=== PATIENT | female | born 1980 | race Caucasian/White ===

== ENCOUNTER 2021-03-22 14:03 | Observation (INO) | payer BC, SELFPAY ==
[2021-03-22] VITALS (18 sets, daily range): BP systolic 95–133; BP diastolic 48–85; PULSE 58–106; RESP 16–18; TEMP 36.4–43; O2SAT 94–100; BMI 33.2; BMI 34.5
--- NOTE | 2021-03-22 14:13 | US_ITS ---
FINAL REPORT CLINICAL HISTORY: Severe RLQ pain, r/o ovarian torsion FINDINGS: PELVIC ULTRASOUND Transvaginal sonographic images were obtained. The uterus is enlarged at 10.8 cm. The endometrial stripe is normal at 1.3 cm. The right ovary measures 4 x 1.8 x 2.5 cm. There is a tubular fluid-filled structure adjacent to the right ovary concerning for possible hydrosalpinx. The left ovary measures 4 x 2 x 2.5 cm and appears normal. There is no free fluid. IMPRESSION: 1. Enlarged uterus. 2. Possible right hydrosalpinx. Reviewed, Interpreted and Dictated by Gagandeep Arguelles MD Transcribed by Adelina Alarcon Authenticated by Gagandeep Arguelles MD on 03/22/2021 03:16:36 PM [facility]
--- NOTE | 2021-03-22 14:15 | CT_ITS ---
PROCEDURE INFORMATION: Exam: CT Abdomen And Pelvis With Contrast Exam date and time: 03/22/2021 2:15 PM Age: 41 years old Clinical indication: Abdominal pain; Localized; Right lower quadrant (rlq); Additional info: Rlq abd pain, assess for appendicitis TECHNIQUE: Imaging protocol: Computed tomography of the abdomen and pelvis with contrast. Radiation optimization: All CT scans at this facility use at least one of these dose optimization techniques: automated exposure control; mA and/or kV adjustment per patient size (includes targeted exams where dose is matched to clinical indication); or iterative reconstruction. Contrast material: ISOVUE; Contrast volume: 75 ml; Contrast route: IV; COMPARISON: US TRANSVAGINAL 03/22/2021 2:37 PM FINDINGS: Lungs: No acute findings in the visualized lower lungs. No consolidation. Liver: The liver is normal. Gallbladder and bile ducts: The gallbladder is unremarkable. No calcified stones or biliary dilatation. Pancreas: The pancreas is normal. Spleen: The spleen is normal. Tiny accessory splenule at the lateral tip of spleen series 5, image 25. Adrenal glands: There are tiny hypoattenuating nodules in both adrenal glands, an ovoid nodule of 7 mm in the medial limb of the right adrenal series 5, image 32; a 2nd hypoattenuating nodule of 8 mm in the medial right adrenal series 5, image 27 and coronal image 46; and a 1 cm ovoid nodule in the medial left adrenal series 5, image 29. Enhanced density of the left 1 cm nodule is approximately 35 HU, indeterminate. No precontrast images available to compare. Kidneys and ureters: The kidneys are normal. The ureters are normal. Stomach and bowel: There is no evidence of intestinal perforation or obstruction. The stomach is normal. Appendix: The tip of the appendix is slightly dilated up to 10 mm and distended with fluid, with tiny amount of free fluid and slight soft tissue stranding abutting the tip of the appendix, see coronal images 27-28 axial series 5 images 88-90. Findings suspicious for acute tip appendicitis. No organized periappendiceal abscess collection or extraluminal gas bubbles. Proximal to this the appendix appears normal caliber with no wall thickening and contains some air bubbles. No calcified appendicolith. Intraperitoneal space: Trace free fluid in the cul-de-sac. Trace free fluid in the right lower quadrant abutting the tip of the appendix. No organized, loculated abscess collection.There is no free intraperitoneal air. Vasculature: There is no aortic aneurysm. The vasculature demonstrates scattered mild atherosclerotic calcification. No portal venous gas. Lymph nodes: No significantly enlarged lymph nodes by short axis criteria. Urinary bladder: The bladder is normal. Reproductive: Uterus appears within normal limits for the patient's age, endometrial stripe approximately 1 cm thickness on sagittal image 51. Bilateral tubal ligation clips. A 1.4 x 0.8 cm ovoid/tubular cystic structure abutting the right ovary and uterine fundus which may be mild hydrosalpinx as suggested on the prior pelvic ultrasound exam. Left fallopian tube also appears slightly distended at the left uterine fundus 6 x 8 mm series 5, image 99. Small bilateral ovarian follicles/follicular cysts, no significantly enlarged cyst or mass as visualized. A slightly hyperenhancing 2.2 cm left adnexal lesion series 5, image 93, nonspecific but most likely a functional, involuting ovarian cyst. Bones/joints: There is no evidence of acute fracture. Mild disc narrowing and spondylosis in the lower thoracic spine. Some sclerotic lesions scattered through the pelvis and femur on the left, nonspe
--- NOTE | 2021-03-22 14:16 | HMH.EDGENADL ---
ED Disposition Clinical Impression: Appendicitis Qualifiers: Appendicitis type: acute appendicitis Acute appendicitis type: with localized peritonitis Appendicitis gangrene presence: unspecified whether gangrene present Appendicitis perforation presence: without perforation Appendicitis abscess presence: without abscess Qualified Code(s): K35.30 - Acute appendicitis with localized peritonitis, without perforation or gangrene Disposition: Admitted As Inpatient Condition on Discharge: Fair Instructions: DI for Acute Abdominal Pain Referrals: Toi Awan MD [Primary Care Provider] - - Critical Care Critical Care Time: No Attestation: On , the high probability of a clinically significant, sudden or life threatening deterioration of the following system(s) required my full and direct attention, intervention and personal management. The time I documented below is in addition to time spent performing reported procedures but includes the following listed in this critical care notation. Medical Decision Making - Medical Records Medical records reviewed: Yes: I reviewed the patient's medical records. - [place] Inquiry Pt receiving controlled substance: No Vital Signs: 03/22/21 14:04 Temperature 98.2 F Temperature Source Oral Pulse Rate [Radial] 106 H Respiratory Rate 16 Blood Pressure [Right Arm] 130/85 Blood Pressure Mean [Right Arm] 100 Blood Pressure Position [Right Arm] Sitting 02 Sat by Pulse Oximetry 98 Oxygen Delivery Method Room Air - Lab Data Lab results reviewed: Yes: I reviewed the patient's lab results. Lab Results 03/22/21 14:25: WBC 19.4 H, RBC 5.16, Hgb 11.7 L, Hct 37.7, MCV 73.1 L, MCH 22.6 L, MCHC 30.9 L, RDW 18.1 H, Plt Count 360, MPV 8.3, Neut % (Auto) 88.2 H, Lymph % (Auto) 9.1 L, [place] % (Auto) 2.4, Eos % (Auto) 0.2, Baso % (Auto) 0.2, Neut # (Auto) 17.1 H, Lymph # (Auto) 1.8, [place] # (Auto) 0.5, Eos # (Auto) 0.0, Baso # (Auto) 0.0, Total Counted 100, Neutrophils % (Manual) 90 H, Lymphocytes % (Manual) 8 L, Monocytes % (Manual) 2, Platelet Estimate Normal, Hypochromasia 2+, Microcytosis 1+, Ovalocytes 1+, Acanthocytes (Spur) 1+ 03/22/21 14:25: Sodium 136, Potassium 4.5, Chloride 106, Carbon Dioxide 22, Anion Gap 12.5, BUN 10, Creatinine 0.60, Estimated Creat Clear 149, Estimated GFR 110, Est GFR ( Amer) 133, Glucose 124 H, Calcium 9.4, Total Bilirubin 0.4, AST 26, ALT 18, Alkaline Phosphatase 91, C-Reactive Protein 3.8, Total Protein 7.2, Albumin 4.2, Globulin 3.0, Albumin/Globulin Ratio 1.4 03/22/21 14:25: Serum HCG, Qual Negative 03/22/21 15:30: Lactate 0.9 Result diagrams: 03/22/21 14:25 03/22/21 14:25 Orders (Tests/Meds): ED MEDICATIONS Generic Name Dose Route Start Last Admin Trade Name Freq PRN Reason Stop Dose Admin Piperacillin Sod/Tazobactam 50 mls @ 100 mls/hr 03/22/21 18:15 Sod 3.375 gm/ Sodium Chloride IV 04/05/21 18:14 Q6H BRITTANEY Discontinued Medications Generic Name Dose Route Start Last Admin Trade Name Freq PRN Reason Stop Dose Admin Iopamidol 75 ml 03/22/21 15:28 03/22/21 15:29 Iopamidol-370 (76%);100ml Bottle IV 03/22/21 15:29 75 ml ONCE ONE Administration Ketorolac Tromethamine 15 mg 03/22/21 14:15 03/22/21 14:27 Ketorolac 30mg/Ml Vial IV 03/22/21 14:16 15 mg ONCE ONE Administration Ondansetron HCl 4 mg 03/22/21 14:15 03/22/21 14:27 Ondansetron 4mg/2ml Vial IV 03/22/21 14:16 4 mg ONCE ONE Administration Sodium Chloride 10 ml 03/22/21 15:28 03/22/21 15:29 Sodium Chloride 0.9% 10ml Vial IV 03/22/21 15:29 10 ml ONCE ONE Administration ORDERS Category Date Time Status Urinalysis and Microscopic Stat Lab 03/22/21 14:13 Ordered Urine , HCG Qual. Stat Lab 03/22/21 14:13 Ordered - CT Data Findings Narrative: CT abd/pelvis w/IV contrast: FINDINGS: Lungs: No acute findings in the visualized lower lungs. No consolidation. Liver: The liver is normal. Gallbladder and
[2021-03-22 14:37] LABS: Chloride 106 mmol/L (98-107); Sodium 136 mmol/L (136-145)
[2021-03-22 14:38] LABS: Potassium 4.5 mmoL/L (3.5-5.1)
[2021-03-22 14:40] LABS: Alanine Aminotransferase 18 U/L (12-78); Albumin Level 4.2 g/dl (3.5-5.0); Albumin/Globulin Ratio 1.4 (1.1-1.8); Alkaline Phosphatase 91 U/L (38-126); Anion Gap 12.5 mEq/L (5-15); Aspartate Amino Transferase 26 U/L (14-36); Bilirubin,Total 0.4 mg/dl (0.2-1.3); Blood Urea Nitrogen 10 mg/dl (7-17); Carbon Dioxide 22 mmol/L (22.0-30.0); Creatinine Clearance Estimated 149 mL/min (50-200); Estimated Glomerular Filt Rate 110 ml/min (>60); GFR (African American) 133 ML/MIN (>60); Total Protein,Serum 7.2 g/dl (6.3-8.2)
[2021-03-22 14:41] LABS: Calcium 9.4 mg/dl (8.4-10.2); Glucose 124 mg/dl (74-100)
[2021-03-22 14:47] LABS: C-Reactive Protein 3.8 mg/L (0-4)
[2021-03-22 14:52] LABS: HCG Qualitative, Serum Negative (Negative)
[2021-03-22 14:56] LABS: Basophils % 0.2 % (0.1-2.0); Eosinophils % 0.2 % (0.1-12.0); Hematocrit 37.7 % (37.0-47.0); Hemoglobin 11.7 g/dL (12.2-16.2); Lymphocytes # 1.8 K/mm3 (0.7-4.5); Lymphocytes % 9.1 % (10-50); Mean Corpuscular HGB Conc 30.9 g/dL (31.8-35.4); Mean Corpuscular Hemoglobin 22.6 pg (27.0-31.2); Mean Corpuscular Volume 73.1 fl (81-99); Mean Platelet Volume 8.3 fl (7.4-10.4); Monocytes # 0.5 K/mm3 (0.1-1.0); Monocytes % 2.4 % (1.7-9.3); Neutrophils # 17.1 K/mm3 (1.8-7.8); Neutrophils % 88.2 % (37.0-80.0); Platelet Count 360 K/mm3 (142-424); Red Blood Count 5.16 M/mm3 (4.20-5.40); Red Cell Distribution Width 18.1 % (11.5-17.5); White Blood Count 19.4 K/mm3 (4.8-10.8)
[2021-03-22 14:58] LABS: MANUAL DIFFERENTIAL MANUAL DIFFERENTIAL (MANUAL DIFF)
[2021-03-22 15:13] LABS: Lymphocytes % 8 % (10-50); Monocytes % 2 % (2-9); Neutrophils % 90 % (42-76); Total Cells Counted 100
[2021-03-22 15:14] LABS: Hypochromasia 2+; Microcytosis 1+; Platelet Estimate Normal
[2021-03-22 15:15] LABS: Acanthocytes 1+; Ovalocytes 1+
[2021-03-22 15:47] LABS: Lactic Acid 0.9 mmol/L (0.7-2.1)
--- NOTE | 2021-03-22 18:07 | PC.NURSE ---
has been paged
--- NOTE | 2021-03-22 18:29 | HMH.GSHP ---
HPI HPI: Patient is a 41-year-old female. She states that she has had some diminished appetite and low-grade temperature elevation for several days. However, this morning she awoke with onset of nausea and dry heaves. She then developed significant right lower quadrant pain and tenderness. She presented to the emergency department where she was seen and evaluated. She was found to have a leukocytosis of 19,400. She had a CT scan performed which revealed most noted dilated appendix tip to 10 mm distended with fluid and small amount of free fluid and soft tissue stranding abutting the tip of the appendix suspicious for acute appendicitis. Surgery was consulted. [facility] History *Have you ever received a pneumonia vaccine?: No *Have you received a flu vaccine this season?: No Fractures: Yes (LEFT arm) - *Social History Smoking Status: Current every day smoker Tobacco Type: cigarettes # Packs/Day (cigarettes): 1 Alcohol Intake: never *Occupational Status:: other *Travel in the last 8 weeks: None Family Hx:: Non-contributory Review of Systems - Review of Systems Review of systems:: pertinent systems reviewed and negative unless documented below - *Neurologic Denies localized weakness, Denies numbness Meds Allergies Allergy/AdvReac Type Severity Reaction Status Date / Time No Known Allergies Allergy Verified 07/07/18 20:25 Exam Vital signs and Labs for Last 24 Hours: Temp Pulse Resp BP Pulse Ox 98.2 F 106 H 16 130/85 98 03/22/21 14:04 03/22/21 14:04 03/22/21 14:04 03/22/21 14:04 03/22/21 14:04 Laboratory Results - last 24 hr 03/22/21 14:25: WBC 19.4 H, RBC 5.16, Hgb 11.7 L, Hct 37.7, MCV 73.1 L, MCH 22.6 L, MCHC 30.9 L, RDW 18.1 H, Plt Count 360, MPV 8.3, Neut % (Auto) 88.2 H, Lymph % (Auto) 9.1 L, [place] % (Auto) 2.4, Eos % (Auto) 0.2, Baso % (Auto) 0.2, Neut # (Auto) 17.1 H, Lymph # (Auto) 1.8, [place] # (Auto) 0.5, Eos # (Auto) 0.0, Baso # (Auto) 0.0, Total Counted 100, Neutrophils % (Manual) 90 H, Lymphocytes % (Manual) 8 L, Monocytes % (Manual) 2, Platelet Estimate Normal, Hypochromasia 2+, Microcytosis 1+, Ovalocytes 1+, Acanthocytes (Spur) 1+ 03/22/21 14:25: Sodium 136, Potassium 4.5, Chloride 106, Carbon Dioxide 22, Anion Gap 12.5, BUN 10, Creatinine 0.60, Estimated Creat Clear 149, Estimated GFR 110, Est GFR ( Amer) 133, Glucose 124 H, Calcium 9.4, Total Bilirubin 0.4, AST 26, ALT 18, Alkaline Phosphatase 91, C-Reactive Protein 3.8, Total Protein 7.2, Albumin 4.2, Globulin 3.0, Albumin/Globulin Ratio 1.4 03/22/21 14:25: Serum HCG, Qual Negative 03/22/21 15:30: Lactate 0.9 I & O for Last 24 hours: Intake & Output 03/20/21 03/21/21 03/22/21 03/23/21 11:59 11:59 11:59 11:59 Weight 170 lb - Constitutional no acute distress - *Routine HEENT Exam Head: Present: normocephalic Eye: Present: EOMI, PERRL ENT: Present: mucous membranes moist - *Routine Neck Exam Present: supple. Absent: lymphadenopathy - *Routine Respiratory Exam Present: CTA bilaterally - *Routine Cardiovascular Exam Present: RRR - *Routine Abdominal Exam Present: soft, normoactive bowel sounds, tenderness Comments: Patient does have tenderness in the right lower quadrant with guarding and some rebound. She has positive Rovsing's sign. - *Routine Rectal Exam Rectal:: deferred - *Routine Genitalia Exam Genitalia:: deferred - *Routine Extremities Exam Absent: cyanosis, clubbing, edema - *Routine Skin Exam Present: warm. Absent: rash - *Routine Neurological Exam Present: alert, oriented X3 Results - Results Lab Results Last 24 Hours:: Laboratory Results - last 24 hr 03/22/21 14:25: WBC 19.4 H, RBC 5.16, Hgb 11.7 L, Hct 37.7, MCV 73.1 L, MCH 22.6 L, MCHC 30.9 L, RDW 18.1 H, Plt Count 360, MPV 8.3, Neut % (Auto) 88.2 H, Lymph % (Auto) 9.1 L, [place] % (Auto) 2.4, Eos % (Auto) 0.2, Baso % (Auto) 0.2, Neut # (Auto) 17.1 H, Lymph # (Auto) 1.8, [place] # (Auto) 0.5, Eos # (Auto) 0.0, Baso # (Auto
--- NOTE | 2021-03-22 18:39 | PC.NURSE ---
Dr. Cano called to inform me he was here to take patient to the OR for her acute appendicitis and need the OR team. Team notified at this time: Rayne Matt RN, Arjun Hall CRNA, Wilver Rhoades, [employer]/[address] [phone].
[2021-03-22 18:43] LABS: Coronavirus 19, PCR Not Detected (NotDetected); Influenza A, PCR Not Detected (NotDetected); Influenza B, PCR Not Detected (NotDetected)
--- NOTE | 2021-03-22 19:15 | PC.NURSE ---
Pt to SX with SX staff at this time
--- NOTE | 2021-03-22 20:10 | HMH.OPNOTE ---
Date of procedure: 03/22/21 Pre-op Diagnosis:: Acute appendicitis Post-op Diagnosis:: Same Procedure performed:: Laparoscopic appendectomy Surgeon:: Abraham Cano MD EDUCATION INSTRUCTOR:: Arjun Hall Anesthesia: GETFrederick Estimated blood loss (mL): 10 Clinical Note:: Patient is a 41-year-old female. She states that she has had some diminished appetite and low-grade temperature elevation for several days. However, this morning she awoke with onset of nausea and dry heaves. She then developed significant right lower quadrant pain and tenderness. She presented to the emergency department where she was seen and evaluated. She was found to have a leukocytosis of 19,400. She had a CT scan performed which revealed most noted dilated appendix tip to 10 mm distended with fluid and small amount of free fluid and soft tissue stranding abutting the tip of the appendix suspicious for acute appendicitis. Surgery was consulted. Operative findings:: She had an acutely inflamed erythematous somewhat indurated but nonsuppurative appendicitis Operative note:: Consent was obtained and patient was taken the operating room. She was positioned supine position. General anesthesia was induced via endotracheal tube. Davidson catheter was placed for bladder decompression. Abdomen was prepped and draped in the standard surgical fashion. Infraumbilical incision was made. While performing abdominal wall lift Veress needle was inserted. CO2 pneumoperitoneum was achieved to 15 mmHg. 12 mm optical trocar was inserted at the umbilicus. Intraperitoneal contents were visualized. She was positioned in the left side down. 5 mm trocar was inserted in the suprapubic location. Additional 5 mm trocar was inserted in the right upper abdomen. 10 mm laparoscope was replaced with a 5 mm 30 degree laparoscope. Appendix was identified and grasped retracted anteriorly and superiorly. It was indurated and erythematous particularly towards the tip. Mesoappendix was carefully divided with DARIO ultrasonic harmonic balbina with care taken to coagulate the appendiceal artery in the process. Dissection was carried down to the base of the appendix which was relatively uninflamed. The appendix was divided at the base with an endoscopic MARIE linear cutting stapling device. The appendix was placed within an Endo Catch retrieval device and removed from the peritoneal cavity via the umbilical trocar site. The pericecal location was irrigated with limited amounts of saline and aspirated until clear. There was some fluid in the pelvis which was suctioned free after irrigating. Trochars were then removed as CO2 pneumoperitoneum was evacuated. Fascia at the umbilicus was closed with 0 Vicryl suture. Local anesthetic was infiltrated. Skin incisions were closed with 4-0 Monocryl subcuticular fashion. Steri-Strips and dressings were applied. Condition: stable Disposition: PACU Specimens:: Appendix Complications:: None immediately apparent
--- NOTE | 2021-03-22 20:19 | HMH.ANESCL ---
[facility] Anesthesia Checklist - Patient Identification Patient Identification: Arm Band - Structural Data Admitted From: Emergency Dept Planned Operative Procedure/s: Laparoscopic Appendectomy Consent for Planned Operative Procedure(s) Verified: Yes Verified Documents: Surgical Consent, History and Physical - NPO Status Verified Time NPO: 00:00 - Additional verifications Anesthesia Reactions: No - Airway Assessment C-Spine Mobility Assessed: Yes TMJ Mobility Assessed: Yes Dentition: Good Dentition - Neurological Assessment Level of Consciousness: Awake, Alert - Anesthesia Plan Anesthesia Risk discussed: Yes Anesthesia Plan: Verified ASA Class: II (e) Anesthesia Type: General [facility] History I have reviewed the patient's past medical history: Yes Medical History: Reports:: Anxiety, Hypertension *Have you ever received a pneumonia vaccine?: No *Have you received a flu vaccine this season?: No Anesthesia experience/problems:: nac Other Surgeries: Yes: , Other Fractures: Yes (LEFT arm) - *Social History Smoking Status: Current every day smoker Tobacco Type: cigarettes # Packs/Day (cigarettes): 1 Alcohol Intake: never Substance Use Type: denies use *Occupational Status:: other *Travel in the last 8 weeks: None Family Hx:: Non-contributory
--- NOTE | 2021-03-22 20:21 | HMH.ANESI ---
[facility] Anesthesia Record Part I Intake, IV Amount: 800 Estimated blood loss (mL): 10 Urine output (mL): 100 Blood Pressure: 133/75 SaO2: 98 Pulse Rate: 87 Respiratory Rate: 16 Temperature: 98.5 F Patient is:: Drowsy, Stable Stable to PACU at:: 20:15
--- NOTE | 2021-03-22 20:24 | PC.NURSE ---
2023-pt eating ice chips w/out difficulty
--- NOTE | 2021-03-22 20:45 | SUR.PHASEI ---
2046-detailed report called to Aung Rice at this time 2048-pt transported to med/surg room 214 via stretcher w/nani rails up and transferred to hospital bed upon arrival to the floor, pt left in care of AUNG Rice with bed locked in lowest position, vss, pt stable
--- NOTE | 2021-03-22 20:53 | PC.NURSE ---
patient up to floor via stretcher @ this time.
[2021-03-22 21:04] LABS: Microscopic,Cath URINE MICROSCOPIC (MICROSCOPIC)
[2021-03-22 21:15] LABS: Appearance,Urine/Cath CLEAR (Clear); Bilirubin,Cath Negative (Negative); Blood, Urine/Cath Negative (Negative); Color,Urine/Cath YELLOW (Yellow); Glucose,Urine/Cath (UA) Negative (Negative); Ketones,Urine/Cath Negative (Negative); Leukocyte Esterase,Cath Negative (Negative); Nitrate,Cath Negative (Negative); PH,Urine/Cath 6.5 (5.0-8.5); Protein,Urine/Cath Negative (Negative); Urobilinogen,Cath 0.2 EU/dl (0.2)
[2021-03-22 21:24] LABS: Bacteria,Urine/Cath TRACE /lpf
[2021-03-23 00:50] VITALS: BP 111/53; PULSE 65; RESP 17; TEMP 37.1; O2SAT 97
[2021-03-23 01:50] VITALS: BP 103/49; PULSE 63; RESP 16; TEMP 37; O2SAT 96
[2021-03-23 02:50] VITALS: BP 93/46; PULSE 63; RESP 16; TEMP 36.6; O2SAT 96
[2021-03-23 03:50] VITALS: BP 102/52; PULSE 61; RESP 17; TEMP 36.8; O2SAT 97
[2021-03-23 05:00] VITALS: BMI 34.5
--- NOTE | 2021-03-23 06:30 | P.PN_ITS ---
Subjective Patient reports: feels better, tolerating liquids well Narrative: Patient states that she feels better other than some minor soreness at the incisions Progress Note: A&P Assessment and Plan for All Diagnoses:: Discharge home Exam Vital signs and Labs for Last 24 Hours: Temp Pulse Resp BP Pulse Ox 98.3 F 61 17 102/52 L 97 03/23/21 03:50 03/23/21 03:50 03/23/21 03:50 03/23/21 03:50 03/23/21 03:50 Laboratory Results - last 24 hr 03/22/21 14:25: WBC 19.4 H, RBC 5.16, Hgb 11.7 L, Hct 37.7, MCV 73.1 L, MCH 22.6 L, MCHC 30.9 L, RDW 18.1 H, Plt Count 360, MPV 8.3, Neut % (Auto) 88.2 H, Lymph % (Auto) 9.1 L, [place] % (Auto) 2.4, Eos % (Auto) 0.2, Baso % (Auto) 0.2, Neut # (Auto) 17.1 H, Lymph # (Auto) 1.8, [place] # (Auto) 0.5, Eos # (Auto) 0.0, Baso # (Auto) 0.0, Total Counted 100, Neutrophils % (Manual) 90 H, Lymphocytes % (Manual) 8 L, Monocytes % (Manual) 2, Platelet Estimate Normal, Hypochromasia 2+, Microcytosis 1+, Ovalocytes 1+, Acanthocytes (Spur) 1+ 03/22/21 14:25: Sodium 136, Potassium 4.5, Chloride 106, Carbon Dioxide 22, Anion Gap 12.5, BUN 10, Creatinine 0.60, Estimated Creat Clear 149, Estimated GFR 110, Est GFR ( Amer) 133, Glucose 124 H, Calcium 9.4, Total Bilirubin 0.4, AST 26, ALT 18, Alkaline Phosphatase 91, C-Reactive Protein 3.8, Total Pro tein 7.2, Albumin 4.2, Globulin 3.0, Albumin/Globulin Ratio 1.4 03/22/21 14:25: Serum HCG, Qual Negative 03/22/21 15:30: Lactate 0.9 03/22/21 18:30: SARS-CoV-2 (PCR) Not detected, Influenza A Untype (PCR) Not detected, Influenza Type B (PCR) Not detected 03/22/21 19:35: Urine Color Yellow, Urine Appearance Clear, Urine pH 6.5, Ur Specific [place] 1.010, Urine Protein Negative, Urine Glucose (UA) Negative, Urine Ketones Negative, Urine Blood Negative, Urine Nitrate Negative, Urine Bilirubin Negative, Urine Urobilinogen 0.2, Ur Leukocyte Esterase Negative, Ur Squamous Epith Cells 3-5, Urine Bacteria Trace I & O for Last 24 hours: Intake & Output 03/20/21 03/21/21 03/22/21 03/23/21 11:59 11:59 11:59 11:59 Intake Total 1002 / 1002 Balance 1002 / 1002 Weight 175 lb 15.92 oz - *Routine Abdominal Exam Present: soft Comments: Trocar dressings dry
--- NOTE | 2021-03-23 07:06 | HMH.DCSUM ---
General - General Admission date:: 03/22/21 Discharge date: 03/23/21 HPI HPI: Patient is a 41-year-old female. She states that she has had some diminished appetite and low-grade temperature elevation for several days. However, in the morning of 03/22/2021 she awoke with onset of nausea and dry heaves. She then developed significant right lower quadrant pain and tenderness. She presented to the emergency department where she was seen and evaluated. She was found to have a leukocytosis of 19,400. She had a CT scan performed which revealed most noted dilated appendix tip to 10 mm distended with fluid and small amount of free fluid and soft tissue stranding abutting the tip of the appendix suspicious for acute appendicitis. Surgery was consulted. Patient was seen and examined in the emergency department. She had findings of guarding or rebound in the right lower quadrant. Hospital Course Hospital Course: Patient was seen and examined in the emergency department. She had findings of acute appendicitis on clinical examination and CT scan. She was taken to the operating room which time she underwent laparoscopic appendectomy. She was found to have an acutely inflamed somewhat indurated but nonsuppurative nonperforated appendicitis mostly towards the tip of the appendix. Please see operative dictation for complete details. She was admitted postoperatively for inpatient care and convalescence. She was given a full liquid diet. She tolerated this without difficulty. Following morning she was doing well other than some minor incisional soreness. Overall she felt better. Arrangements were made for discharge home. Objective Vital signs: Temp Pulse Resp BP Pulse Ox 98.3 F 61 17 102/52 L 97 03/23/21 03:50 03/23/21 03:50 03/23/21 03:50 03/23/21 03:50 03/23/21 03:50 Results Labs on day of discharge: Labs from last 24 hours 03/22/21 03/22/21 03/22/21 19:35 18:30 15:30 WBC RBC Hgb Hct MCV MCH MCHC RDW Plt Count MPV Neut % (Auto) Lymph % (Auto) [place] % (Auto) Eos % (Auto) Baso % (Auto) Neut # (Auto) Lymph # (Auto) [place] # (Auto) Eos # (Auto) Baso # (Auto) Total Counted Neutrophils % (Manual) Lymphocytes % (Manual) Monocytes % (Manual) Platelet Estimate Hypochromasia Microcytosis Ovalocytes Acanthocytes (Spur) Sodium Potassium Chloride Carbon Dioxide Anion Gap BUN Creatinine Estimated Creat Clear Estimated GFR Est GFR ( Amer) Glucose Lactate 0.9 Calcium Total Bilirubin AST ALT Alkaline Phosphatase C-Reactive Protein Total Protein Albumin Globulin Albumin/Globulin Ratio Serum HCG, Qual Urine Color Yellow Urine Appearance Clear Urine pH 6.5 Ur Specific [place] 1.010 Urine Protein Negative Urine Glucose (UA) Negative Urine Ketones Negative Urine Blood Negative Urine Nitrate Negative Urine Bilirubin Negative Urine Urobilinogen 0.2 Ur Leukocyte Esterase Negative Ur Squamous Epith Cells 3-5 Urine Bacteria Trace SARS-CoV-2 (PCR) Not detected Influenza A Untype (PCR) Not detected Influenza Type B (PCR) Not detected 03/22/21 03/22/21 03/22/21 14:25 14:25 14:25 WBC 19.4 H RBC 5.16 Hgb 11.7 L Hct 37.7 MCV 73.1 L MCH 22.6 L MCHC 30.9 L RDW 18.1 H Plt Count 360 MPV 8.3 Neut % (Auto) 88.2 H Lymph % (Auto) 9.1 L [place] % (Auto) 2.4 Eos % (Auto) 0.2 Baso % (Auto) 0.2 Neut # (Auto) 17.1 H Lymph # (Auto) 1.8 [place] # (Auto) 0.5 Eos # (Auto) 0.0 Baso # (Auto) 0.0 Total Counted 100 Neutrophils % (Manual) 90 H Lymphocytes % (Manual) 8 L Monocytes % (Manual) 2 Platelet Estimate Normal Hypochromasia 2+ Microcytosis 1+ Ovalocytes 1+ Acanthocytes (Spur) 1+ Sodium 136 Pot
--- NOTE | 2021-03-23 07:22 | HMH.PHAVTE ---
[facility] Pharmacy VTE Monitoring - Patient Demographics Admission date: 03/22/21 Report Date: 03/23/21 Time: 07:22 Allergies/Adverse Reactions: Patient Allergies No Known Allergies Allergy (Verified 07/07/18 20:25) Height: 1.52 m Weight: 79.83 kg Patient Problems: Current Active Problems Appendicitis (Acute) - VTE Risk Labs: VTE Related Lab Results Hgb 11.7 g/dL (12.2-16.2) L 03/22/21 14:25 Hct 37.7 % (37.0-47.0) 03/22/21 14:25 Plt Count 360 K/mm3 (142-424) 03/22/21 14:25 BUN 10 mg/dl (7-17) 03/22/21 14:25 Creatinine 0.60 mg/dl (0.52-1.04) 03/22/21 14:25 Estimated Creat Clear 149 mL/min (50-200) 03/22/21 14:25 VTE Score: 3 VTE Risk Level: Low Risk - Prophylaxis VTE Prophylaxis Ordered?: Yes Types of VTE Prophylaxis: TEDS Knee High Location of Applied Device: Bilateral Lower Extremeties
--- NOTE | 2021-03-23 09:05 | P.PN_ITS ---
[facility] Anesthesia Record Part II Discharge Time: 20:45 Destination: Medical Surgical Department PACU nurse assessment reviewed?: Yes Patient Condition:: Good Anesthesia Complications:: None Swallowing reflex intact?: Yes Cyanosis?: No Blood Pressure: 122/80 Pulse Rate: 71 Temperature: 98.3 F Mental Status: Alert & Oriented Pain level:: 0 Nausea and/or vomitting:: None Intake, IV Amount: 0
[2021-03-23 09:06] VITALS: BP 122/80; PULSE 71; TEMP 36.8
== END 2021-03-23 07:30 | disposition home or self-care (01) ==
LOC: ER 19:38 → OR 19:38 → 2ND 20:50
PROVIDERS: Admitting Provider Surgery; Emergency Provider Emergency Medicine; PCP Family Medicine; Visit Provider Surgery
PROC: 0DTJ4ZZ Resection of Appendix, Percutaneous Endoscopic Approach (ICD-10-PCS; CPT 44970; principal; 2021-03-22 19:00)
DX: K35.80 Unspecified acute appendicitis (principal); F17.210 Nicotine dependence, cigarettes, uncomplicated; Z20.822 Contact with and (suspected) exposure to COVID-19
CPT/HCPCS: 44970; 74177; 76830; 80053; 81001; 83605; 84703; 85007; 85025; 86140; 96365; 96375; 96376; 99284; C9803; G0378; J2405; J2543; J2710; Q9967; U0003; U0005

== ENCOUNTER → 2021-06-17 08:23 | Outpatient (CLI) | payer BC, SELFPAY ==
--- NOTE | 2021-06-17 08:26 | MM_ITS ---
PROCEDURE INFORMATION: Exam: Bilateral Screening 3D Mammography Exam date and time: 06/17/2021 8:33 AM Age: 41 years old Clinical indication: Baseline screening mammogram TECHNIQUE: Imaging protocol: Bilateral Screening tomosynthesis and 2D mammography including computer-aided detection (CAD) when performed. COMPARISON: No relevant prior studies available. FINDINGS: MAMMOGRAPHY: Breast composition: The breast tissue is heterogeneously dense, which may obscure small masses. Mass: Mass within the upper slightly inner left posterior breast measuring 9 mm , not well-delineated on MLO should be further assessed with spot views in CC/MLO and full lateral projection. Ultrasound should also be performed. Architectural distortion: No new or suspicious architectural distortion. Calcifications: No new or suspicious calcifications are present Asymmetric density: No new or suspicious asymmetric density is present Skin thickening: None. Axillary adenopathy: None. IMPRESSION: Mass within the upper slightly inner left posterior breast measuring 9 mm , not well-delineated on MLO should be further assessed with spot views in CC/MLO and full lateral projection. Ultrasound should also be performed. ASSESSMENT: BI-RADS category 0: Incomplete-need additional imaging evaluation
== END ==
PROVIDERS: PCP Family Medicine; Visit Provider Physician Assistant
DX: Z12.31 Encounter for screening mammogram for malignant neoplasm of breast (principal)
CPT/HCPCS: 77063; 77067

== ENCOUNTER → 2021-06-30 13:49 | Outpatient (CLI) | payer BC, SELFPAY ==
--- NOTE | 2021-06-30 13:52 | MM_ITS ---
PROCEDURE INFORMATION: Exam: MG Left Diagnostic Breast Tomosynthesis Exam date and time: 06/30/2021 1:45 PM Age: 41 years old Clinical indication: Patient recalled on the basis of a screening mammogram for further evaluation; Left breast; mass TECHNIQUE: Imaging protocol: Left Diagnostic tomosynthesis and 2D mammography including computer-aided detection (CAD) when performed. Unilateral or bilateral exam. COMPARISON: MG MM DIG SCREENING MAMM BI W/CAD 06/17/2021 8:33 AM FINDINGS: MAMMOGRAPHY: Digital diagnostic spot compression views of the left breast and 90 degree lateral view of the left breast demonstrates a persistent bilobed is approximately 0.9 cm mass only well seen in the craniocaudal projection. It is located slightly medial to nipple line. It is unclear if this corresponds to underlying cystic change seen sonographically. IMPRESSION: Probably benign nodular asymmetry in the deep left central breast slightly medial to the nipple line. A six-month follow-up diagnostic left mammogram is recommended to ensure stability of the pattern identified unless otherwise clinically indicated. ASSESSMENT: BI-RADS Category 3: Probably benign
--- NOTE | 2021-06-30 13:52 | US_ITS ---
PROCEDURE INFORMATION: Exam: US Left Breast, Complete Exam date and time: 06/30/2021 2:03 PM Age: 41 years old Clinical indication: Patient recalled for further evaluation of a left breast mass TECHNIQUE: Imaging protocol: Complete ultrasound of all four quadrants of the Left breast and the retroareolar regions, including ultrasound of the axilla when performed. COMPARISON: MG MM DIG SCREENING MAMM BI W/CAD 06/17/2021 8:33 AM FINDINGS: Breast: Sonographic images of the left breast including the retroareolar region, all 4 quadrants and the axilla do not demonstrate any solid or cystic masses in the inner quadrants. 0.5 cm cyst in the 5 o'clock 3 cm from the nipple. Cursors were placed over a probable debris-filled cyst in the 5 o'clock axis 4 cm from the nipple measuring 0.6 x 0.4 x 0.2 cm. In the left 1 o'clock axis 4 cm from the nipple is a probable cluster of cysts measuring 0.6 x 0.4 x 0.5 cm in dimension. No architectural distortion or acoustical shadowing. No skin thickening or axillary adenopathy. IMPRESSION: 1. Mammographically visible sonographically occult probably benign cysts 0.9 cm left medial mass/nodular asymmetry. It is only well seen in the craniocaudal projection. A six-month follow-up diagnostic left mammogram is recommended to ensure stability of the pattern identified unless otherwise clinically indicated. 2. Sonographically visible probable cluster of benign cysts in the upper outer quadrant. A six-month follow-up targeted left breast ultrasound is recommended to ensure stability over time unless otherwise clinically indicated. ASSESSMENT: BI-RADS Category 3: Probably benign
== END ==
PROVIDERS: PCP Family Medicine; Visit Provider Physician Assistant
DX: R92.8 Other abnormal and inconclusive findings on diagnostic imaging of breast (principal)
CPT/HCPCS: 76641; 77061; 77065; G0279

== ENCOUNTER 2022-05-23 12:44 | Emergency (ER) | payer BC, SELFPAY ==
[2022-05-23 13:15] VITALS: BP 123/69; PULSE 72; RESP 20; TEMP 36.9; O2SAT 97; BMI 33.2
--- NOTE | 2022-05-23 13:39 | EXP.UTC ---
Discharge Plan Disposition Patient Disposition: Home, Self-Care Condition: Good Prescriptions Prescriptions: New methocarbamol 500 mg tablet 500 mg PO TID PRN (Reason: muscle spasm) Qty: 15 0RF methylprednisolone [Medrol (Jarod)] 4 mg tablets,dose pack See Rx Instructions .Route .COMPLEX 6 Days Qty: 21 0RF Rx Instructions: taper pack; No Action hydroxyzine HCl 25 MG tablet 25 mg PO HS PRN (Reason: Insomnia) Referrals Follow up/Referrals: Toi Awan MD [Primary Care Provider] - See instructions Activity Restrictions/Add. Instructions Additional Instructions/Restrictions: *Ibuprofen dorcas 6 hours with meal as needed for pain/inflammation *Not additional anti-inflammatory like motrin, aleve, advil with the above amount of ibuprofen. You can still take Tylenol every 4 hours as needed if you need something else for pain *Ice 20 minutes every 2 hours for the first 48 hours after the initial injury followed by moist heat every 20 minutes 3-4 times a day to affected area *Muscle relaxer every 8 hours as needed for muscle spasms but remember, it WILL cause drowsiness You cannot take it and drive, work, operate machinery or care for small children. *Keep this area active, no movement leads to more stiffness, However take it easy and avoid heavy lifting pushing or pulling *Follow up with you family doctor if no improvement for further treatment Clinical Impressions Clinical Impression: Muscle spasm Stand Alone Forms Stand Alone Forms: Work/School Release Instructions Patient Instructions: DI for Muscle Spasm, Methocarbamol Discharge ED Provider: Radha Gonzalez [facility] General Stated complaint: Right Arm pain and can't move it, no accident Mode of Arrival: Ambulatory Source of Information: Patient Limitations: No Limitations Time Seen by Provider: 05/23/22 13:39 Description of Symptoms (Recalled from Triage Doc. by RN): elbow to shoulder pain right arm HEENT Symptoms (Recalled from RN notes): Yes Resp Symptoms (Recalled from RN notes): No Skin Symptoms (Recalled from RN notes): No MS Symptoms (Recalled from RN notes): No Functional Status (Recalled from RN notes): n/a History of Present Illness Provider Complaint: Patient states that at work she does alot of raising her arms above her head States that she has been having muscle spasms in her right shoulder area that goes down into her right upper arm that is worse with movement States that she hasnt fallen or anything feels like muscle spasms Related Data Home Medications Medication Instructions Recorded Confirmed hydroxyzine HCl 25 mg tablet 25 mg PO HS PRN Insomnia 03/22/21 05/23/22 Previous Rx's Medication Instructions Recorded methocarbamol 500 mg tablet 500 mg PO TID PRN muscle spasm #15 05/23/22 tabs methylprednisolone 4 mg tablets in See Rx Instructions .Route 05/23/22 a dose pack (Medrol (Jarod)) .COMPLEX 6 days #21 tabs Allergies Allergy/AdvReac Type Severity Reaction Status Date / Time No Known Allergies Allergy Verified 07/07/18 20:25 Worker's Comp Is this a Worker's Comp case?: No [facility] Disclaimer: The information contained in this section may have been updated after the patient was seen, as this information can be updated by other users. Social History Smoking Status: Current every day smoker tobacco type: cigarettes packs per day: 1 alcohol intake: never substance use type: marijuana current occupational status: unemployed Travel in the last 8 weeks: None household members: spouse and children housing: house caffeine: Yes ROS Obtained: Yes All systems reviewed & no additional complaints except as documented and Yes Systems reviewed as appropriate & no additional complaints except as documented Constitutional Constitutional: Reports system reviewed and no additional complaints, except as documented and Reports as per HPI ENT Ears
[2022-05-23 14:17] VITALS: BP 123/69; PULSE 72; RESP 20; TEMP 36.9; O2SAT 97
== END 2022-05-23 14:17 | disposition home or self-care (01) ==
PROVIDERS: Emergency Provider Nurse Practitioner; PCP Family Medicine
DX: M62.838 Other muscle spasm (principal)
CPT/HCPCS: 99212; 99213; G0463

== ENCOUNTER → 2022-05-27 12:10 | Outpatient (CLI) | payer BC, SELFPAY ==
--- NOTE | 2022-05-27 12:14 | XR_ITS ---
FINAL REPORT CLINICAL HISTORY: RIGHT SIDE SHOULDER PAIN COMPARISON: None FINDINGS: RIGHT SHOULDER Three views demonstrate no acute fracture or dislocation. There is mild AC joint degenerative change. There is a 4 mm calcification superior aspect of the AC joint which may represent small loose body. The visualized bony structures are well aligned. No soft tissue abnormality is seen. IMPRESSION: Degenerative change. Possible small loose body. Reviewed, Interpreted and Dictated by Abraham Domínguez III, MD Transcribed by Mary Canseco Authenticated and [facility]
== END ==
LOC: RAD 12:10
PROVIDERS: PCP Physician Assistant; Visit Provider Physician Assistant
DX: M25.511 Pain in right shoulder (principal)
CPT/HCPCS: 73030

== ENCOUNTER → 2022-06-07 08:42 | Outpatient (CLI) | payer BC, SELFPAY ==
--- NOTE | 2022-06-07 08:47 | MR_ITS ---
FINAL REPORT CLINICAL HISTORY: PAIN, JOINT, SHOULDER, RIGHT. no injury or trauma. constant pain in shoulder pain 2 weeks. FINDINGS: Multi planar MR imaging of the right shoulder was performed. The supraspinatus tendon appears intact. The subscapularis tendon is intact. There is no abnormal fluid in the subacromial/subdeltoid bursa. The anterior and posterior glenoid jesus appear intact. The biceps tendon appears intact. There are moderate hypertrophic changes of the AC joint. IMPRESSION: Moderate hypertrophic changes of the AC joint. Reviewed, Interpreted and Dictated by Gagandeep Arguelles MD Transcribed by Michelle Arevalo Authenticated and [facility]
== END ==
LOC: RAD 08:44
PROVIDERS: PCP Physician Assistant; Visit Provider Physician Assistant
DX: M25.511 Pain in right shoulder (principal)
CPT/HCPCS: 73221

== ENCOUNTER 2023-04-16 10:06 | Emergency (ER) | payer BC, SELFPAY ==
[2023-04-16 10:10] VITALS: BP 128/62; PULSE 90; RESP 18; TEMP 36.8; O2SAT 98; BMI 31.6
--- NOTE | 2023-04-16 10:17 | EXP.UTC ---
Discharge Plan Disposition Patient Disposition: Home, Self-Care Condition: Good Prescriptions Prescriptions: New azithromycin [Zithromax] 250 mg tablet 250 mg PO UD DOSE PK Qty: 6 0RF Rx Instructions: Take two (2) tablets today, then one (1) tablet days #2 thru #5 benzonatate [benzonatate] 100 mg capsule 100 mg PO TIDP PRN (Reason: Cough) Qty: 30 0RF methylprednisolone 4 mg Tablets,Dose Pack 4 mg PO DIRECTED 6 Days Qty: 21 0RF Rx Instructions: Take 1 pack as directed for 6 days Referrals Follow up/Referrals: Toi Awan MD [Primary Care Provider] - See instructions Activity Restrictions/Add. Instructions Additional Instructions/Restrictions: Drink plenty of fluids. Take tylenol or ibuprofen for pain or fever. Take the medications as directed. Follow up with your regular doctor. GO TO THE ER FOR ANY WORSENING SYMPTOMS Clinical Impressions Clinical Impression: Acute bronchitis Instructions Patient Instructions: DI for Acute Bronchitis Discharge ED Provider: Roderick Santamaria [facility] General Stated complaint: Cough Time Seen by Provider: 04/16/23 10:17 History of Present Illness Provider Complaint: She states that for the past 3 days she has had worsening chest and sinus congestion. Related Data Previous Rx's Medication Instructions Recorded azithromycin 250 mg tablet 250 mg PO UD DOSE PK #6 tabs 04/16/23 (Zithromax) benzonatate 100 mg capsule 100 mg PO TIDP PRN Cough #30 caps 04/16/23 methylprednisolone 4 mg tablets in 4 mg PO DIRECTED 6 days #21 tabs 04/16/23 a dose pack Allergies Allergy/AdvReac Type Severity Reaction Status Date / Time No Known Allergies Allergy Verified 04/16/23 10:35 [facility] Disclaimer: The information contained in this section may have been updated after the patient was seen, as this information can be updated by other users. Social History Smoking Status: Current every day smoker tobacco type: cigarettes packs per day: 1 alcohol intake: never substance use type: marijuana current occupational status: unemployed Travel in the last 8 weeks: None household members: spouse and children housing: house caffeine: Yes ROS Obtained: Yes All systems reviewed & no additional complaints except as documented Constitutional Constitutional: Reports poor appetite Eyes Eyes: Reports system reviewed and no additional complaints, except as documented ENT Ears, Nose, Mouth, and Throat: Reports as per HPI Cardiovascular Cardiovascular: Reports system reviewed and no additional complaints, except as documented and Denies chest pain Respiratory Respiratory: Denies shortness of breath, Reports chest congestion, Reports cough, Denies stridor and Denies wheezing Gastrointestinal Gastrointestingal: Reports system reviewed and no additional complaints, except as documented; Denies abdominal pain, diarrhea or vomiting Musculoskeletal Musculoskeletal: Reports system reviewed and no additional complaints, except as documented and Denies arthralgias Integumentary/Breasts Skin/Breast: Reports system reviewed and no additional complaints, except as documented and Denies rash Neurologic Neurologic: Denies paresthesias Allergic/Immunologic Allergic/Immunologic: Denies wheezing Physical Exam General General appearance: alert and in no apparent distress Eye Eye exam: Present normal appearance, PERRL and EOMI ENT ENT exam: Present mucous membranes moist and normal external ear exam Expanded ENT Exam External ear exam: Present normal external inspection TM/Canal exam: Bilateral TM: erythema and bulging Nose exam: Absent sinus tenderness Nasal speculum exam: Bilateral: normal Mouth exam: Present normal external inspection; Absent drooling Teeth exam: Present normal inspection Throat exam: Present tonsillar erythema and tonsillomegaly Neck Neck exam: Present normal inspection, full ROM and trachea midline; Absent tenderness, lymphadenopathy or thyromegaly Chest Chest inspection: Present normal inspection and symmetric chest wall rise; Absent tenderness or rash Respiratory Respiratory exam: Present normal lung sounds bilaterally; Absent respiratory distress, wheezes, stridor or accessory muscle use Cardiovascular Cardiovascular exam: Present regular rate, normal rhythm and normal heart sounds Abdominal Exam Abdominal exam: Present soft; Absent distention, tenderness, guarding, rebound or rigidity Extremities Exam Extremities exam: Present normal inspection, full ROM and normal capillary refill; Absent tenderness or calf tenderness Back Exam Back exam: Present normal inspection and full ROM; Absent tenderness Neurological Exam Neurological exam: Present alert and oriented X3 Psychiatric Psychiatric exam: Present normal affect and normal mood Skin Skin exam: Present warm, dry, intact and normal color Lymphatic Lymphatic Findings: no adenopathy Medical Decision Making Medical Records Medical records reviewed: No I reviewed the patient's medical records. Santana Inquiry Pt receiving controlled substance: No Lab Data Lab results reviewed: Yes I reviewed the patient's lab results.
[2023-04-16 11:28] VITALS: BP 128/62; PULSE 90; RESP 18; TEMP 36.8; O2SAT 98
== END 2023-04-16 11:28 | disposition home or self-care (01) ==
PROVIDERS: Emergency Provider Nurse Practitioner Family; PCP Family Medicine
DX: J20.9 Acute bronchitis, unspecified (principal); R05.9 Cough, unspecified; R09.81 Nasal congestion; R09.89 Other specified symptoms and signs involving the circulatory and respiratory systems; F17.210 Nicotine dependence, cigarettes, uncomplicated
CPT/HCPCS: 99212; 99214; G0463

== ENCOUNTER 2023-07-24 07:41 | Outpatient (CLI) | payer BC, SELFPAY ==
--- NOTE | 2023-07-24 07:42 | US_ITS ---
PROCEDURE: US TRANSVAGINAL CLINICAL INDICATION: AUB/Menorrhagia COMPARISON: US US TRANSVAGINAL from 03/22/2021 FINDINGS: Transvaginal sonographic images of the pelvis were obtained. UTERUS: 9.1cm x 6.2cmx 5.7 cm anteverted, bulky with a combined endometrial thickness of 9.5mm. There is a fibroid measuring 3.6 cm x 2.6 cm x 2.3 cm. There is a small nabothian cyst in the cervix. LEFT OVARY: 2.9 cmx1.5cmx3.4cm with a volume of 7.6ml. There is a follicle measuring 1.35 cm. There are several small follicles. RIGHT OVARY: 1.6 cmx 1.8 cmx3.0cm with a volume of 4.4ml. There is a follicle measuring 0.8 cm. There are several smaller follicles. Both ovaries are seen and appear normal. Doppler flow to both ovaries are seen. There is no fluid in the cul-de-sac. IMPRESSION: 1. Anteverted, bulky uterus with a normal appearing endometrium. 2. There is a 3.6 cm fibroid within the uterus on the left side. 3. Both ovaries are seen and appear normal. They both have small follicles. 4. No fluid in the cul-de-sac. Dictated by: Jonnathan Garcia MD 07/24/2023 10:16 Jonnathan Garcia MD in OV 07/24/2023 10:16
[2023-07-24 08:52] LABS: Basophils % 0.4 % (0.1-2.0); Eosinophils # 0.2 K/mm3 (0.0-0.4); Eosinophils % 1.7 % (0.1-12.0); Hematocrit 36.1 % (37.0-47.0); Hemoglobin 11.2 g/dL (12.2-16.2); Mean Corpuscular Hemoglobin 24.9 pg (27.0-31.2); Mean Corpuscular Volume 80.2 fl (81-99); Mean Platelet Volume 8.2 fl (7.4-10.4); Monocytes # 0.4 K/mm3 (0.1-1.0); Monocytes % 4.9 % (1.7-9.3); Neutrophils # 6.2 K/mm3 (1.8-7.8); Platelet Count 314 K/mm3 (142-424); Red Cell Distribution Width 17.3 % (11.5-17.5); White Blood Count 8.9 K/mm3 (4.8-10.8)
[2023-07-24 10:16] LABS: Alanine Aminotransferase 12 U/L (12-78); Albumin Level 3.7 g/dl (3.5-5.0); Albumin/Globulin Ratio 1.5 (1.1-1.8); Alkaline Phosphatase 73 U/L (38-126); Aspartate Amino Transferase 21 U/L (14-36); Bilirubin,Total 0.2 mg/dl (0.2-1.3); Blood Urea Nitrogen 10 mg/dl (7-17); Calcium 9.1 mg/dl (8.4-10.2); Carbon Dioxide 27 mmol/L (22.0-30.0); Chloride 109 mmol/L (98-107); Estimated Glomerular Filt Rate 109 ml/min (>60); GFR (African American) 131 ML/MIN (>60); Globulin 2.4 g/dL (1.3-3.2); Glucose 88 mg/dl (74-100); Sodium 139 mmol/L (136-145); Total Protein,Serum 6.1 g/dl (6.3-8.2)
[2023-07-24 10:44] LABS: Thyroid Stimulating Hormone 2.56 uIU/mL (0.465-4.68)
== END 2023-07-24 23:59 | disposition home or self-care (01) ==
LOC: RAD 07:42
PROVIDERS: PCP Family Medicine; Visit Provider Obstetrics & Gynecology
DX: N93.9 Abnormal uterine and vaginal bleeding, unspecified (principal)
CPT/HCPCS: 36415; 76830; 80053; 84443; 85025

== ENCOUNTER 2023-09-01 09:35 | Outpatient (CLI) | payer BC, SELFPAY ==
[2023-09-01 10:09] LABS: Basophils # 0.1 K/mm3 (0-0.2); Basophils % 0.4 % (0.1-2.0); Eosinophils # 0.2 K/mm3 (0.0-0.4); Hematocrit 36.4 % (37.0-47.0); Lymphocytes # 1.9 K/mm3 (0.7-4.5); Lymphocytes % 12.7 % (10-50); Mean Corpuscular HGB Conc 30.1 g/dL (31.8-35.4); Mean Corpuscular Volume 79.9 fl (81-99); Mean Platelet Volume 8.1 fl (7.4-10.4); Monocytes # 0.8 K/mm3 (0.1-1.0); Monocytes % 5.2 % (1.7-9.3); Neutrophils # 12.2 K/mm3 (1.8-7.8); Neutrophils % 80.8 % (37.0-80.0); Platelet Count 300 K/mm3 (142-424); Red Blood Count 4.56 M/mm3 (4.20-5.40); Red Cell Distribution Width 16.7 % (11.5-17.5); White Blood Count 15.2 K/mm3 (4.8-10.8)
[2023-09-01 10:19] LABS: MANUAL DIFFERENTIAL MANUAL DIFFERENTIAL (MANUAL DIFF)
[2023-09-01 10:46] LABS: Chloride 107 mmol/L (98-107); Potassium 4.1 mmoL/L (3.5-5.1); Sodium 140 mmol/L (136-145)
[2023-09-01 10:48] LABS: Alanine Aminotransferase 16 U/L (12-78); Alkaline Phosphatase 85 U/L (38-126); Anion Gap 9.1 mEq/L (5-15); Aspartate Amino Transferase 23 U/L (14-36); Bilirubin,Total 0.3 mg/dl (0.2-1.3); Blood Urea Nitrogen 13 mg/dl (7-17); Carbon Dioxide 28 mmol/L (22.0-30.0); Estimated Glomerular Filt Rate 78 ml/min (>60); GFR (African American) 94 ML/MIN (>60)
[2023-09-01 10:49] LABS: Albumin Level 3.8 g/dl (3.5-5.0); Albumin/Globulin Ratio 1.5 (1.1-1.8); Calcium 9.2 mg/dl (8.4-10.2); Globulin 2.5 g/dL (1.3-3.2); Glucose 86 mg/dl (74-100); Total Protein,Serum 6.3 g/dl (6.3-8.2)
[2023-09-01 11:58] LABS: Eosinophils % 1 % (0-3); Hypochromasia 2+; Lymphocytes % 13 % (10-50); Monocytes % 4 % (2-9); Neutrophils % 82 % (42-76); Platelet Estimate Normal; Total Cells Counted 100
== END 2023-09-01 23:59 | disposition home or self-care (01) ==
PROVIDERS: PCP Family Medicine; Visit Provider Obstetrics & Gynecology
DX: N94.6 Dysmenorrhea, unspecified (principal)
CPT/HCPCS: 36415; 80053; 85007; 85025; 85027

== ENCOUNTER 2023-09-06 06:01 | Day surgery (SDC) | payer BC, SELFPAY ==
[2023-09-05 08:24] VITALS: BMI 31.4
[2023-09-05 09:07] VITALS: BMI 33.5
[2023-09-06] VITALS (9 sets, daily range): BP systolic 113–151; BP diastolic 51–98; PULSE 62–99; RESP 14–18; TEMP 36.2–36.6; O2SAT 94–98
[2023-09-06] MEDS: LACTATED RINGERS 1000ML 1,000 ML 25 ML IV (06:35)
[2023-09-06 06:39] LABS: Urine Pregnancy, HCG Qual. Negative (Negative)
[2023-09-06] MEDS: ACETAMINOPHEN 500MG TAB 1000 MG PO (06:39)
--- NOTE | 2023-09-06 07:44 | P.PNANES_ITS ---
[facility] Disclaimer: The information contained in this section may have been updated after the patient was seen, as this information can be updated by other users. Medical History Bloody discharge from right nipple Fibroid uterus Perimenopausal symptoms Dysmenorrhea Abnormal uterine bleeding Muscle spasm Impingement of right shoulder Surgical History Hx of appendectomy History of carpal tunnel release H/O tubal ligation History of salpingectomy History of delivery Family History Father Cancer Hypertension Diabetes Social History Smoking Status: Current every day smoker tobacco type: cigarettes packs per day: 1 alcohol intake: never substance use type: marijuana current occupational status: employed Travel in the last 8 weeks: None household members: spouse and children housing: house caffeine: Yes [facility] Anesthesia Checklist Patient Identification Patient Identification: Verbal (Name & ) Structural Data Admitted From: Home Planned Operative Procedure/s: d/c,hyst Consent for Planned Operative Procedure(s) Verified: Yes NPO Status Verified Time NPO: 00:00 Additional verifications Anesthesia Reactions: No Hx Blood Transfusions: No Airway Assessment Mallampati Score:: Class II C-Spine Mobility Assessed: Yes Dentition: Partials Neurological Assessment Level of Consciousness: Awake, Alert and Appropriate Anesthesia Plan Anesthesia Risk discussed: Yes Anesthesia Plan: Verified ASA Class: II Anesthesia Type: General
--- NOTE | 2023-09-06 08:19 | EXP.OP.NOTE ---
Date of procedure: 09/06/23 Pre-op Diagnosis:: 1. Abnormal uterine bleeding 2. Dysmenorrhea 3. Uterine fibroid Post-op Diagnosis:: 1. Abnormal uterine bleeding 2. Dysmenorrhea 3. Uterine fibroid Procedure performed:: Hysteroscopy, dilation and curettage, Novasure endometrial ablation Surgeon:: Va Perry DO Food Service Sales Representatives(s):: N/a CIVIL STRUCTURAL ENGINEER:: Ervin Nielson Anesthesia: GETA Estimated blood loss (mL): 5 Clinical Note:: Mrs. Ana Cabral is a very pleasant 43 yo P2003 who presents to [facility] for scheduled procedure. She complains of severe pelvic pain with abnormally heavy periods for the past 6-8 months. Periods are regular, about every 3 weeks. Flow lasts 7 days and is very heavy for 5. She admits to brain fog, emotional lability and decreased libido. History of x 2 and tubal ligation (one fallopian tube was removed and the other was ligated). TSH within normal limits. Pelvic ultrasound demonstrated 3.6 cm fibroid on left side of uterus. Operative findings:: 1. On bimanual exam, uterus normal size and shape, anteverted. No adnexal masses palpated 2. On hysteroscopic exam, bilateral tubal ostia easily visualized. Grossly normal appearing uterine cavity, no masses, polyps or lesions. Operative note:: Risks, benefits and alternatives were discussed with the patient. Risks include but are not limited to bleeding, infection, uterine perforation and VTE. Patient voiced understanding and agreed to proceed. She was wheeled back to the operating room and placed under general anesthesia without difficulty. She was placed in dorsal lithotomy position and prepped and draped in the normal sterile fashion. A bimanual exam was performed. A weighted Auvard was placed in the vaginal vault. Single tooth tenaculum was placed on anterior lip of the cervix. Uterus sounded to 8. Sequential Giovanni dilators were used to dilate the cervical os. Hysteroscope was tested inserted through the cervix without difficulty. Endometrial cavity was evaluated. See findings above. Pictures were taken. Hysteroscope was removed. Medium size sharp curette was inserted through the cervix into the uterine cavity. The endometrial cavity was curetted with a systematic herz-[id number]-[id number] movement of the curette so that all possible endometrium was sampled. Endometrial curettings will be sent to pathology for review. Novasure sure sound was used to obtain uterine length. Uterus measured 5 cm in length and 4 cm in cavity width. Novasure deviced was inserted and ablation was performed per protocol at a power of 110 w for 93 seconds. Novasure device was removed. Hysteroscope was reinserted and cavity revealed adequate burn and no uterine perforation. Hysteroscope was removed. Instruments were removed from the vagina. Tenaculum site was noted to be hemostatic. Patient was awaken from anesthesia without difficulty. She was transported to recovery room in stable condition. Patient will be discharged home when awake and ambulating. She was given postop instructions as well as instructions to follow-up in the office in 2 weeks at which time pathology will be reviewed. Condition: stable Disposition: same day Specimens:: Endometrial curettings Complications:: None
--- NOTE | 2023-09-06 08:27 | P.PNANES_ITS ---
[facility] Anesthesia Record Part I Anesthesia Record I Intake, IV Amount: 1,500 Hydration: Adequate Estimated blood loss (mL): 30 Urine output (mL): 0 Blood Pressure: 150/86 SaO2: 94 Pulse Rate: 89 Airway Patency: Patent Respiratory Rate: 14 Temperature: 97.9 F Patient is:: Awake and Stable Stable to PACU at:: 08:24
--- NOTE | 2023-09-06 08:55 | SUR.PHASEI ---
Pt stable, says is cramping slightly but denied need for pain med. No vag bleeding at this time. Pt sipping water withou N/V, report given to Jeanine Gamez RN in post op. Clinic pharmacy aware of meds to beds order.
--- NOTE | 2023-09-07 08:32 | P.PNANES_ITS ---
[facility] Anesthesia Record Part II Anesthesia Record Part II Discharge Time: 08:54 Destination: Surgical Day Care (OP Surgery) PACU nurse assessment reviewed?: Yes Patient Condition:: Good Anesthesia Complications:: None Swallowing reflex intact?: Yes Airway Patency: Patent Cyanosis?: No Blood Pressure: 147/78 SaO2: 95 Respiratory Rate: 18 Pulse Rate: 62 Temperature: 97.4 F Mental Status: Alert & Oriented Pain level:: 0 Nausea and/or vomitting:: None Intake, IV Amount: 0 Hydration: Adequate
[2023-09-07 08:33] VITALS: BP 147/78; PULSE 62; RESP 18; TEMP 36.3; O2SAT 95
== END 2023-09-06 09:30 | disposition home or self-care (01) ==
PROVIDERS: PCP Family Medicine; Visit Provider Obstetrics & Gynecology
PROC: (CPT 58563; principal; 2023-09-06 07:30)
DX: N93.9 Abnormal uterine and vaginal bleeding, unspecified (principal); N94.6 Dysmenorrhea, unspecified; D25.9 Leiomyoma of uterus, unspecified
CPT/HCPCS: 58563; 81025; J1885; J2175; J2250; J2405; J3010; J7120

== ENCOUNTER 2023-09-07 07:44 | Outpatient (CLI) | payer BC, SELFPAY ==
--- NOTE | 2023-09-07 07:44 | MM_ITS ---
PROCEDURE INFORMATION: Exam: US Right Breast, Complete MG Bilateral Screening 3D Mammography Exam date and time: 09/07/2023 8:21 AM Age: 43 years old Clinical indication: Screening examination; aving bloody discharge from RT. Breast TECHNIQUE: Imaging protocol: Complete ultrasound of all four quadrants of the right breast and the retroareolar regions, including ultrasound of the axilla when performed. Bilateral Screening tomosynthesis and 2D mammography including computer-aided detection (CAD) when performed. COMPARISON: MG MM DIG SCREENING MAMM BI W/CAD 09/07/2023 7:37 AM FINDINGS: MAMMOGRAPHY: Breast composition: There are scattered areas of fibroglandular density. Mass: No new or suspicious masses. Architectural distortion: None. Calcifications: None. Asymmetric density: None. Skin thickening: None. Axillary adenopathy: None. ULTRASOUND: Right solid masses: None. Right cystic masses: Minimal subcentimeter cystic change is present in the right breast. Right architectural distortion: None. Right acoustical shadowing: None. Right skin thickening: None. Right axillary adenopathy: None. IMPRESSION: No mammographic or sonographic evidence of malignancy. Further evaluation of nipple discharge if spontaneous and clear and/or hemorrhagic may be obtained with breast MRI if clinically desired Annual screening is recommended unless otherwise clinically indicated. ASSESSMENT: BI-RADS Category 2: Benign.
== END 2023-09-07 23:59 | disposition home or self-care (01) ==
LOC: RAD 07:44
PROVIDERS: PCP Family Medicine; Visit Provider Obstetrics & Gynecology
DX: Z12.31 Encounter for screening mammogram for malignant neoplasm of breast (principal); N64.52 Nipple discharge
CPT/HCPCS: 76641; 77063; 77067

== ENCOUNTER 2024-03-14 10:39 | Emergency (ER) | payer BC, SELFPAY ==
[2024-03-14 11:50] VITALS: BP 126/56; PULSE 87; RESP 19; TEMP 37.1; O2SAT 97; BMI 28.1
[2024-03-14 12:11] LABS: UTC Influenza A Antigen Negative (Negative)
[2024-03-14 12:12] LABS: UTC Influenza B Antigen Negative (Negative)
--- NOTE | 2024-03-14 12:14 | ED_ITS ---
Discharge Plan Disposition Patient Disposition: Home, Self-Care Condition: Good Prescriptions Prescriptions: No Action No Known Home Medications Referrals Follow up/Referrals: Toi Awan MD [Primary Care Provider] - See instructions Activity Restrictions/Add. Instructions Additional Instructions/Restrictions: * Your COVID test should be back later today and available on the [facility] portal * Lots of rest * Increase Fluids water, Gatorade, powerade, pedialyte,if /toddler/child * Alternate Tylenol and / or ibuprofen as discussed for fever, aches, chi lls Follow up IMMEDIATELY with your family doctor for new or worsening Symptoms OR no noticeable improvement over the next 48-72 hours, 911 for difficulty or breathing * You or your child area contagious until no fever, aches, chills for 24 hours with medication for symptoms * Help Prevent the spread of influenza: * ?Wash your hands often. Use soap and water. Wash your hands after you use the bathroom, change a child's diapers, or sneeze. Wash your hands before you prepare or eat food. Use gel hand cleanser that has 60% alcohol, when soap and water are not available. Do not touch your eyes, nose, or mouth unless you have washed your hands first. * Cover your mouth when you sneeze or cough. Cough into a tissue or the bend of your arm. If you use a tissue, throw it away immediately and wash your hands. * Clean shared items with a germ-killing bladder cleaner. Clean table surfaces, doorknobs, and light switches. Do not share towels, silverware, and dishes with people who are sick. Wash bed sheets, towels, silverware, and dishes with soap and water. * Wear a mask over your mouth and nose if you are sick. The face mask may help protect others from becoming infected with the flu. Wear the mask when in common areas of your home or if you seek care with a healthcare provider. * Stay away from others if you are sick. Stay at home until 24 hours after your fever and symptoms are gone. Clinical Impressions Clinical Impression: Viral syndrome Instructions Patient Instructions: DI for Viral Syndrome Print Language Print Language: Tunisian Discharge ED Provider: Radha Gonzalez [facility] [place] General Stated complaint: cough congetion chills Mode of Arrival: Ambulatory Source of Information: Patient Limitations: No Limitations Time Seen by Provider: 03/14/24 12:14 Description of Symptoms (Recalled from Triage Doc. by RN): PATIENT C/O BODY ACHES, COUGH AND FEVER X 2 DAYS HEENT Symptoms (Recalled from RN notes): No Resp Symptoms (Recalled from RN notes): Yes Skin Symptoms (Recalled from RN notes): No MS Symptoms (Recalled from RN notes): No Functional Status (Recalled from RN notes): WNL History of Present Illness Provider Complaint: Patient states that she has been exposed to COVID and flu and for the last couple of days she has been having fever, chills, and body aches so she came in wanting to get tested Related Data Home Medications ?Medication ?Instructions ?Recorded ?Confirmed No Known Home Medications 09/20/23 03/14/24 Allergies Allergy/AdvReac Type Severity Reaction Status Date / Time No Known Allergies Allergy Verified 09/20/23 10:23 Worker's Comp Is this a Worker's Comp case?: No [facility] Disclaimer: The information contained in this section may have been updated after the patient was seen, as this information can be updated by other users. Medical History (Updated 03/14/24 @ 12:18 by Radha Gonzalez APRN) Bloody discharge from right nipple Fibroid uterus Perimenopausal symptoms Dysmenorrhea Abnormal uterine bleeding Muscle spasm Impingement of right shoulder Surgical History (Updated 09/20/23 @ 10:39 by Va Perry DO) History of endometrial ablation Hx of appendectomy History of carpal tunnel release H/O tubal ligation History of salpingectomy History of delivery Family History Father Cancer Hypertension Diabetes Social History Smoking Status: Current every day smoker tobacco type: cigarettes packs per day: 1 alcohol intake: never substance use type: marijuana current occupational status: employed Travel in the last 8 weeks: None household members: spouse and children housing: house caffeine: Yes ROS Obtained: Yes All systems reviewed & no additional complaints except as documented and Yes Systems reviewed as appropriate & no additional complaints except as documented Constitutional Constitutional: Reports system reviewed and no additional complaints, except as documented, Reports as per HPI, Reports body ache, Reports chills and Reports f ever(s) ENT Ears, Nose, Mouth, and Throat: Reports system reviewed and no additional complaints, except as documented and Reports as per HPI Cardiovascular Cardiovascular: Reports system reviewed and no additional complaints, except as documented and Reports as per HPI Respiratory Respiratory: Reports system reviewed and no additional complaints, except as documented and Reports as per HPI Gastrointestinal Gastrointestingal: Reports system reviewed and no additional complaints, except as documented and as per HPI Genitourinary Female Genitourinary: Reports system reviewed and no additional complaints, except as documented and Reports as per HPI Physical Exam General General appearance: alert and in no apparent distress ENT ENT exam: Present normal exam, normal oropharynx, mucous membranes moist and TM's normal bilaterally Respiratory Respiratory exam: Present normal lung sounds bilaterally; Absent respiratory distress or wheezes Cardiovascular Cardiovascular exam: Present regular rate, normal rhythm and normal heart sounds Abdominal Exam Abdominal exam: Present soft and normal bowel sounds; Absent distention or tenderness Neurological Exam Neurological exam: Present alert, oriented X3 and normal gait Medical Decision Making Medical Records Screening: Per USPSTF and CDC recommendations, given the prevalence of disease in our [facility], it is our hospital?s policy to screen for HIV and viral Hepatitis for all patients aged 18 and over and those with ongoing risk factors. Santana Inquiry Pt receiving controlled substance: No Santana was queried for this patient: No Vital Signs: 03/14/24 11:50 Temperature 98.8 F Temperature Source Oral Pulse Rate [Left Brachial] 87 Respiratory Rate 19 Blood Pressure [Left Arm] 126/56 L Blood Pressure Mean [Left Arm] 79 Blood Pressure Source [Left Arm] Automatic Cuff Blood Pressure Position [Left Arm] Sitting 02 Sat by Pulse Oximetry 97 Oxygen Delivery Method Room Air Lab Data Lab results reviewed: Yes I reviewed the patient's lab results. Lab Results 03/14/24 11:56: Influenza Type A Ag Negative, Influenza Type B Ag Negative Orders (Tests/Meds): ORDERS Category Date Time Status Covid-19 Nasal PCR ([facility]) Routine Lab 03/14/24 11:41 Received
[2024-03-14 12:16] VITALS: BP 126/56; PULSE 87; RESP 19; TEMP 37.1; O2SAT 97
== END 2024-03-14 12:26 | disposition home or self-care (01) ==
PROVIDERS: Emergency Provider Nurse Practitioner; PCP Family Medicine
DX: B34.9 Viral infection, unspecified (principal); R50.9 Fever, unspecified; R05.9 Cough, unspecified; R09.81 Nasal congestion; M79.10 Myalgia, unspecified site; Z20.822 Contact with and (suspected) exposure to COVID-19
CPT/HCPCS: 87635; 87804; 99212; G0381

== ENCOUNTER 2024-03-17 02:53 | Emergency (ER) | payer BC, SELFPAY ==
[2024-03-17 02:53] VITALS: BP 155/78; PULSE 110; RESP 24; TEMP 37.1; O2SAT 97; BMI 33.0
--- NOTE | 2024-03-17 03:00 | ECG_ITS ---
APPROVED REPORT Exam: Resting ECG HR:99 bpm ECG Measurements Heart Rate 99 AXES SC 156 P 49 QRSd 98 QRS 35 QT 328 T 38 QTc 384 Conclusion SINUS RHYTHM NORMAL ECG Electronically signed by : TRAM GARCIA, 03/17/2024 07:04:47
--- NOTE | 2024-03-17 03:03 | ED_ITS ---
Discharge Plan Disposition Patient Disposition: Home, Self-Care Condition: Good Prescriptions Prescriptions: New amoxicillin-pot clavulanate 875-125 mg tablet 1 tab PO BID Qty: 14 0RF azithromycin 250 mg tablet See Rx Instructions .ROUTE .COMPLEX Qty: 6 0RF Rx Instructions: For 250 mg dose pack: take 500 mg today (day 1), then 250 mg for 4 days (days 2-5) methocarbamol 500 mg tablet 500 mg PO TID PRN (Reason: muscle spasm) Qty: 20 0RF lidocaine 5 % adhesive patch,medicated See Rx Instructions .ROUTE .COMPLEX Qty: 15 0RF Rx Instructions: Apply 1 patch to most painful area and leave on for 12 hours. Remove and leave off for 12 hours before using a new patch. Referrals Follow up/Referrals: Toi Awan MD [Primary Care Provider] - See instructions Activity Restrictions/Add. Instructions Additional Instructions/Restrictions: You were evaluated in the ER and are appropriate for discharge at this time. Take the prescribed antibiotics as directed, do not skip doses, do not stop taking them early. Take the prescribed methocarbamol if needed for muscle relaxer. This medication may make you sleepy. Do not drive or operate machinery after taking it. Use the prescribed lidocaine patches if needed. You can also take Tylenol, ibuprofen if needed, do not exceed the recommended dose on the bottle. Drink plenty of water and eat a small snack each time you take these medications to avoid side effects. Make an appointment with your primary care doctor for reevaluation in a few days. Return to the ER with new, worsening, or otherwise concerning symptoms. Clinical Impressions Clinical Impression: Left shoulder pain, LLL pneumonia Print Language Print Language: Arabic Discharge ED Provider: Saundra Baez General Adult HPI General Chief complaint: Extremity Problem,Nontraumatic Stated complaint: Shoulder pain Time Seen by Provider: 03/17/24 02:58 History of Present Illness HPI narrative: 44-year-old female with a history of muscle spasm, right shoulder impingement with negative recent flu test from [facility] on 03/14 per my review of records demonstrates presents to the ER tearful with left shoulder pain. She states approximately she had sudden onset of left shoulder pain 2 hours ago. She states the pain is across the top of her shoulder from the base of the neck into the left shoulder. She reports it hurts to move, turn her head, or breathe. She states turning her head does not specifically exacerbate the symptoms. She denies any injuries. She states the pain woke her up from sleep. She states she has been crying so hard that she vomited. She denies any chest pain. She has no dysuria or hematuria, no fevers or chills, no other associated symptoms. No known cardiac history. Related Data Previous Rx's ?Medication ?Instructions ?Recorded amoxicillin 875 mg-potassium 1 tab PO BID #14 tabs 03/17/24 clavulanate 125 mg tablet azithromycin 250 mg tablet See Rx Instructions PO .COMPLEX #6 03/17/24 tabs lidocaine 5 % topical patch See Rx Instructions topical 03/17/24 .COMPLEX #15 ea methocarbamol 500 mg tablet 500 mg PO TID PRN muscle spasm #20 03/17/24 tabs Allergies Allergy/AdvReac Type Severity Reaction Status Date / Time No Known Allergies Allergy Verified 09/20/23 10:23 [facility] Disclaimer: The information contained in this section may have been updated after the patient was seen, as this information can be updated by other users. Medical History (Updated 03/17/24 @ 06:21 by Saundra Baez MD) Bloody discharge from right nipple Fibroid uterus Perimenopausal symptoms Dysmenorrhea Abnormal uterine bleeding Muscle spasm Impingement of right shoulder Surgical History (Updated 09/20/23 @ 10:39 by Va Perry DO) History of endometrial ablation Hx of appendectomy History of carpal tunnel release H/O tubal ligation History of salpingectomy History of delivery Family History Father Cancer Hypertension Diabetes Social History Smoking Status: Current every day smoker tobacco type: cigarettes packs per day: 1 alcohol intake: never substance use type: marijuana current occupational status: employed Travel in the last 8 weeks: None household members: spouse and children housing: house caffeine: Yes Have you lived/traveled outside [place] in past 30 days?: No Contact w/someone who lives/traveled outside US past 30 days?: No Exposure to someone with infectious disease in past 14 days?: No Do you have a fever (greater than 100.4 F or 38 C)?: No Have you tested positive for COVID-19: No Exposed to someone with COVID-19 in past 14 days?: No Do you have a sore throat?: No Do you have a cough?: No Do you have any weakness?: No Do you have any diarrhea?: No Are you experiencing any unusual bleeding?: No Do you have any muscle aches/pain?: No Do you have any abdominal pain?: No Are you experiencing loss of taste or smell?: No Other Medical History Have you received the Flu Vaccine for this season: No Have you received the Pneumonia Vaccine: No ROS Obtained: Yes Systems reviewed as appropriate & no additional complaints except as documented Per HPI Physical Exam General General appearance: alert Comment: Obviously in pain, crying but not in extremis, nontoxic-appearing Head Head exam: atraumatic and normocephalic Eye Eye exam: Present PERRL and EOMI ENT ENT exam: Present mucous membranes moist Neck Neck exam: Present normal inspection and full ROM (Range of motion of the neck is full and does not specifically exacerbate the pain in the neck but she reports that any movement causes pain) Chest Chest inspection: Present symmetric chest wall rise Respiratory Respiratory exam: Present normal lung sounds bilaterally; Absent respiratory distress, wheezes or stridor Cardiovascular Cardiovascular exam: Present normal rhythm and tachycardia Abdominal Exam Abdominal exam: Present soft; Absent distention or tenderness Extremities Exam Extremities exam: Present tenderness (Significant tenderness of the left trapezius muscle, obvious spasm present), normal capillary refill and other (Neurovascularly intact distally); Absent full ROM (Patient refuses to move the left shoulder. She states she has severe pain when she does), edema or joint swelling Neurological Exam Neurological exam: Present alert and oriented X3; Absent motor sensory deficit Psychiatric Psychiatric exam: Present normal affect and normal mood Skin Skin exam: Present warm and dry Medical Decision Making Medical Records Medical records reviewed: Yes I reviewed the patient's medical records. Screening: Per USPSTF and CDC recommendations, given the prevalence of disease in our region, it is our hospital?s policy to screen for HIV and viral Hepatitis for all patients aged 18 and over and those with ongoing risk factors. MR Comment: Negative flu test on 03/14. Patient had shoulder impingement of the right shoulder in early 2022. She had right AC joint hypertrophy on MRI in May 2022 per my review of orthopedic records. She was taking muscle relaxers for limited range of motion and was showing some signs of improvement at that time. Patient is status post hysterectomy in August 2023. Santana Inquiry Pt receiving controlled substance: No Vital Signs: 03/17/24 02:53 03/17/24 03:04 Temperature 98.7 F Temperature Source Oral Pulse Rate 91 H Pulse Rate [Apical] 110 H Respiratory Rate 24 16 Blood Pressure 112/56 L Blood Pressure [Right Arm] 155/78 H Blood Pressure Mean [Right Arm] 103 02 Sat by Pulse Oximetry 97 97 Oxygen Delivery Method Room Air Room Air Lab Data Lab Results 03/17/24 03:00: WBC 13.5 H, RBC 4.65, Hgb 13.7, Hct 40.4, MCV 86.9, MCH 29.5, MCHC 33.9, RDW 15.2, Plt Count 215, MPV 10.0, Neut % (Auto) 80.0, Lymph % (Auto) 13.2, Edmunds % (Auto) 5.8, Eos % (Auto) 0.4, Baso % (Auto) 0.2, Neut # (Auto) 10.8 H, Lymph # (Auto) 1.8, Edmunds # (Auto) 0.8, Eos # (Auto) 0.1, Baso # (Auto) 0.0, P T 9.8 L, INR 0.86 L, D-Dimer 0.95 H, Sodium 134 L, Potassium 4.0, Chloride 107, Carbon Dioxide 21 L, Anion Gap 10.0, BUN 15, Creatinine 0.60, Estimated Creat Clear 143, Estimated GFR 108, Est GFR ( Amer) 131, Glucose 107 H, Calcium 8.4, Total Bilirubin 0.3, AST 43 H, ALT 43, Alkaline Phosphatase 72, Troponin I < 0.01, Total Protein 6.3, Albumin 3.7, Globulin 2.6, Albumin/Globulin Ratio 1.4, Serum HCG, Qual Negative, HIV Ag/Ab Combo Qual Negative 03/17/24 05:52: Troponin I < 0.01 03/17/24 03:00 03/17/24 03:00 Orders (Tests/Meds): ED MEDICATIONS Generic Name Dose Route Start Last Admin Trade Name Freq PRN Reason Stop Dose Admin Sodium Chloride 10 ml 03/17/24 03:55 03/17/24 03:57 Sodium Chloride 0.9% 10ml Syr (Rad Only) IV 04/16/24 03:54 10 ml NEEDED PRN Administration Maintain IV Site Discontinued Medications Generic Name Dose Route Start Last Admin Trade Name Sridevi PRN Reason Stop Dose Admin Acetaminophen 1,000 mg 03/17/24 02:58 03/17/24 03:07 Acetaminophen 500mg Tab PO 03/17/24 02:59 1,000 mg ONCE ONE Administration Amoxicillin/Clavulanate Potassium 1 each 03/17/24 06:20 03/17/24 06:23 Amoxicillin/Clavulanate Potassium 875/125mg Tablet PO 03/17/24 06:21 1 each ONCE ONE Administration Aspirin 324 mg 03/17/24 03:00 03/17/24 03:06 Aspirin 81mg Chewable Tablet PO 03/17/24 03:01 324 mg ONCE ONE Administration Iopamidol 70 ml 03/17/24 03:55 03/17/24 03:57 Iopamidol-370 (76%);100ml Bottle IV 03/17/24 03:56 70 ml ONCE ONE Administration Lidocaine 1 each 03/17/24 02:58 03/17/24 03:07 Lidocaine 5% Transdermal Patch TP 03/17/24 02:59 1 each ONCE ONE Administration Lorazepam 1 mg 03/17/24 03:20 03/17/24 03:24 Lorazepam 2mg/Ml Vial IV 03/17/24 03:21 1 mg ONCE ONE Administration Methocarbamol 1,000 mg 03/17/24 09:00 03/17/24 03:09 Methocarbamol 500mg Tablet PO 04/16/24 08:59 1,000 mg BID BRITTANEY Administration Ondansetron HCl 4 mg 03/17/24 03:07 03/17/24 03:09 Ondansetron 4mg/2ml Vial IV 03/17/24 03:08 4 mg ONCE ONE Administration Sodium Chloride 10 ml 03/17/24 03:20 Sodium Chloride 0.9% 10ml Vial IV 04/16/24 03:19 NEEDED PRN to Dilute Lorazepam inj Sodium Chloride 50 ml 03/17/24 03:55 03/17/24 03:56 0.9 % Sodium Chloride 50 Ml Vial IV 03/17/24 03:56 50 ml ONCE ONE Administration ORDERS Category Date Time Status CT angio chest PE protocol Stat Cat Scan 03/17/24 03:35 Completed Shoulder XR left minimum 2 views [XR shoulder LT min 2V Exams 03/17/24 03:11 Completed ] Stat CBC w/Auto Diff [Complete Blood Count Auto Diff] Stat Lab 03/17/24 03:00 Completed CMP [Comprehensive Metabolic Panel] Stat Lab 03/17/24 03:00 Completed D-Dimer Stat Lab 03/17/24 03:00 Completed HCG Qualitative, Serum Stat Lab 03/17/24 03:00 Completed HIV Combo Routine Lab 03/17/24 03:00 Completed Hep C Ab with Reflex to RNA Stat Lab 03/17/24 03:00 Received PT INR [Prothrombin Time INR] Stat Lab 03/17/24 03:00 Completed Trop I [Troponin I] Stat Lab 03/17/24 03:00 Completed Troponin I Q3H Lab 03/17/24 05:52 Completed Troponin I Q3H Lab 03/17/24 09:00 Ordered Medical Decision Narrative: In summary, 44-year-old female with comorbidities described in the HPI presents to the ER for complaints of acute onset left shoulder pain. She is obviously in pain and has gotten herself so worked up that she is having emesis. She reports no injuries or other known insults to this area. On initial evaluation she is tachycardic, hypertensive, obviously in pain, cardiopulmonary exam is otherwise benign, patient has significant tenderness to the superior aspect of the soft tissues of the shoulder, specifically of the trapezius muscle on the left with obvious spasm. She is neurovascularly intact throughout, no findings of trauma. Differential diagnosis includes but is not limited to ACS, PE, muscle spasm, pneumothorax, acute osseous abnormality the likelihood of this is low since patient was woken up from sleep with this pain. Exam is most consistent with musculoskeletal abnormality such as muscle spasm. I considered cervical radiculopathy but patient has no specific exacerbation of pain, numbness, tingling, or weakness with range of motion of the neck. No midline tenderness of the neck. Based on these concerns, serum labs, cardiac workup, x-ray imaging have been ordered. ECG personally interpreted demonstrates normal sinus rhythm, rate 99, normal axis, normal NE and QTc, no STEMI, normal ECG. Patient received aspirin for possible ACS as well as ondansetron, methocarbamol, lidocaine patch initially for pain and vomiting. Labs reviewed demonstrating mild leukocytosis WBC 13.5, nonspecific, nonactionable. Normal hemoglobin, normal platelets. Trace hyponatremia which is nonactionable at this time, mild elevation in AST which is nonspecific, normal kidney function. Initial troponin undetectably low less than 0.01. D- dimer 0.95. Because patient has pain with deep inspiration in the shoulder and elevated D-dimer with tachycardia on arrival, I am going to perform CTA PE to evaluate for PE. Left shoulder x-ray personally interpreted does not demonstrate acute traumatic injury. There is bone spur within the left AC joint. See radiology read for final interpretation. Patient's pain is resolved. She is resting comfortably at this time. She was placed into ED observation at 0500 for serial troponins to rule out evolving MA and preclude unnecessary admission as well as to follow-up the results of her CT imaging. She was frequently reassessed and on the drama critic while in the ER. CTA PE personally interpreted does not demonstrate pulmonary embolism however there are interstitial changes in the left lower lobe concerning for pneumonia given the patient's recent viral symptoms. See radiology read for final interpretation. Radiology read is in agreement with my interpretations. Patient received Augmentin in the ER. Her pain has been resolved for the last few hours and she has been resting comfortably. Repeat troponin is undetectably low less than 0.01. She is appropriate for discharge at this time. I prescribed Augmentin and azithromycin for outpatient management of pneumonia as well as methocarbamol and lidocaine patches for shoulder pain. She was also referred back to Dr. Vargas for the left shoulder. Patient was given instructions on symptomatic management, follow up instructions, and return precautions for the emergency department. Patient indicated understanding and was discharged in stable condition. Time in ED observation: 1 hour 28 minutes Critical Care Critical Care Time Critical Care Time: No
[2024-03-17 03:04] VITALS: BP 112/56; PULSE 91; RESP 16; O2SAT 97
[2024-03-17] MEDS: ASPIRIN 81MG CHEWABLE TABLET 324 MG PO (03:06)
[2024-03-17] MEDS: ACETAMINOPHEN 500MG TAB 1000 MG PO (03:07)
[2024-03-17] MEDS: LIDOCAINE 5% TRANSDERMAL PATCH 1 EACH TP (03:07)
[2024-03-17] MEDS: METHOCARBAMOL 500MG TABLET 1000 MG PO (03:09)
[2024-03-17] MEDS: ONDANSETRON 4MG/2ML VIAL 4 MG IV (03:09)
[2024-03-17 03:10] LABS: Basophils % 0.2 % (0.1-2.0); Eosinophils # 0.1 K/mm3 (0.0-0.4); Eosinophils % 0.4 % (0.1-12.0); Hematocrit 40.4 % (37.0-47.0); Hemoglobin 13.7 g/dL (12.2-16.2); Lymphocytes # 1.8 K/mm3 (0.7-4.5); Lymphocytes % 13.2 % (10-50); Mean Corpuscular HGB Conc 33.9 g/dL (31.8-35.4); Mean Corpuscular Hemoglobin 29.5 pg (27.0-31.2); Mean Corpuscular Volume 86.9 fl (81-99); Monocytes # 0.8 K/mm3 (0.1-1.0); Monocytes % 5.8 % (1.7-9.3); Neutrophils # 10.8 K/mm3 (1.8-7.8); Platelet Count 215 K/mm3 (142-424); Red Blood Count 4.65 M/mm3 (4.20-5.40); Red Cell Distribution Width 15.2 % (11.5-17.5); White Blood Count 13.5 K/mm3 (4.8-10.8)
--- NOTE | 2024-03-17 03:11 | XR_ITS ---
PROCEDURE INFORMATION: Exam: XR Left Shoulder Exam date and time: 03/17/2024 3:44 AM Age: 44 years old Clinical indication: Pain; Shoulder; Left; Additional info: Pain in superior shoulder TECHNIQUE: Imaging protocol: Radiologic exam of the left shoulder. Views: 2 or more views. COMPARISON: CT ANGIO CHEST PE PROTOCOL 03/17/2024 3:39 AM FINDINGS: Bones/joints: Normal alignment. There is loss of articular cartilage at the acromioclavicular joint with spurring. Soft tissues: Normal. IMPRESSION: No acute findings.
[2024-03-17 03:15] LABS: Chloride 107 mmol/L (98-107)
[2024-03-17 03:16] LABS: Albumin Level 3.7 g/dl (3.5-5.0); Sodium 134 mmol/L (136-145)
[2024-03-17 03:17] LABS: HCG Qualitative, Serum Negative (Negative)
[2024-03-17 03:18] LABS: Blood Urea Nitrogen 15 mg/dl (7-17); Creatinine Clearance Estimated 143 mL/min (50-200); Estimated Glomerular Filt Rate 108 ml/min (>60); GFR (African American) 131 ML/MIN (>60)
[2024-03-17 03:19] LABS: Alanine Aminotransferase 43 U/L (12-78); Albumin/Globulin Ratio 1.4 (1.1-1.8); Alkaline Phosphatase 72 U/L (38-126); Aspartate Amino Transferase 43 U/L (14-36); Bilirubin,Total 0.3 mg/dl (0.2-1.3); Calcium 8.4 mg/dl (8.4-10.2); Carbon Dioxide 21 mmol/L (22.0-30.0); Globulin 2.6 g/dL (1.3-3.2); Glucose 107 mg/dl (74-100); INR 0.86 (0.9-1.1); Prothrombin Time 9.8 seconds (10.1-12.5); Total Protein,Serum 6.3 g/dl (6.3-8.2)
[2024-03-17] MEDS: LORazepam 2MG/ML VIAL 1 MG IV (03:24)
[2024-03-17 03:28] LABS: D-Dimer 0.95 ug/mL (0.0-0.5)
[2024-03-17 03:34] LABS: Troponin I < 0.01 ng/ml (0.00-0.034)
--- NOTE | 2024-03-17 03:35 | CT_ITS ---
PROCEDURE INFORMATION: Exam: CTA Chest With Contrast Exam date and time: 03/17/2024 3:39 AM Age: 44 years old Clinical indication: Pain and abnormal findings; Abnormal diagnostic tests; Elevated d-dimer; Other: Acute left shoulder pain; Additional info: Acute L shoulder pain, pain w/ inspiration, +dimer TECHNIQUE: Imaging protocol: Computed tomographic angiography of the chest with contrast. Exam focused on the arteries. 3D rendering (Not supervised by radiologist): MIP and/or 3D reconstructed images were created by the technologist. Radiation optimization: All CT scans at this facility use at least one of these dose optimization techniques: automated exposure control; mA and/or kV adjustment per patient size (includes targeted exams where dose is matched to clinical indication); or iterative reconstruction. Contrast material: ISOUVE 370; Contrast volume: 70 ml; Contrast route: INTRAVENOUS (IV); COMPARISON: CR XR CHEST 2V 04/17/2019 9:08 AM FINDINGS: Pulmonary arteries: There is moderate enhancement of the segmental pulmonary arteries which is slightly limited enhancement. No definite filling defect is seen within. Aorta: No aortic aneurysm. No aortic dissection. Lungs: There are multiple areas of consolidation in the left lower lobe (series 1002, image 77). There are few punctate granulomas in periphery of the right upper lobe. Pleural spaces: No pneumothorax. No pleural effusion. Heart: The heart is mildly enlarged. Lymph nodes: No enlarged lymph nodes. Diaphragm: There is slight elevation of the left hemidiaphragm. Bones/joints: There are some degenerative changes of the spine. Soft tissues: Unremarkable. IMPRESSION: 1. Limited evaluation of the pulmonary arterial distribution demonstrates no evidence of a pulmonary embolism. 2. Multifocal left lower lobe pneumonia. Correlation with a chest radiograph is recommended. Follow-up clearing recommended. 3. Mild cardiomegaly.
[2024-03-17] MEDS: 0.9 % SODIUM CHLORIDE 50 ML VIAL IV (03:56)
[2024-03-17] MEDS: SODIUM CHLORIDE 0.9% 10ML SYR (RAD ONLY) 10 ML IV (03:57)
[2024-03-17] MEDS: IOPAMIDOL-370 (76%);100ML BOTTLE 70 ML IV (03:57)
[2024-03-17 05:43] LABS: HIV Combo NEGATIVE (Negative)
[2024-03-17 06:20] LABS: Troponin I < 0.01 ng/ml (0.00-0.034)
[2024-03-17] MEDS: AMOXICILLIN/CLAVULANATE POTASSIUM 875/125MG TABLET 1 EACH PO (06:23)
[2024-03-17 06:27] VITALS: BP 110/66; PULSE 89; RESP 20; TEMP 36.8; O2SAT 96
[2024-03-18 11:08] LABS: HCV Ab Non Reactive (Non Reactive)
== END 2024-03-17 06:31 | disposition home or self-care (01) ==
PROVIDERS: Emergency Provider Emergency Medicine; PCP Family Medicine
DX: M25.512 Pain in left shoulder (principal); J18.9 Pneumonia, unspecified organism; Z72.0 Tobacco use
CPT/HCPCS: 71275; 73030; 80053; 84484; 84703; 85025; 85378; 85610; 86803; 87389; 93005; 96374; 96375; 99285; J2060; J2405; Q9967

== ENCOUNTER 2024-04-12 08:00 | Outpatient (RCR) | payer BC, SELFPAY | END 2024-04-12 23:59 | disposition home or self-care (01) | LOC: OT 08:00 | PROVIDERS: Visit Provider Physician Assistant Surgical | DX: M25.511 Pain in right shoulder (principal); M25.512 Pain in left shoulder | CPT/HCPCS: 97014; 97035; 97110; 97140; 97165; G0283 ==